=== PATIENT | male | born 1935 | race Caucasian/White ===

== ENCOUNTER 2017-05-05 00:40 | Observation (INO) | payer MEDICARE, BC ==
[~2017-05-05] VITALS: Ht 182.9 cm; Wt 112.5 kg
--- NOTE | 2017-05-05 00:54 | PHYS DOC ---
General Chief Complaint: CHEST PAIN Stated Complaint: CHEST PAIN Time Seen by MD: 00:42 Source: patient Exam Limitations: no limitations Problems: History of Present Illness Initial Comments Patient is an 81-year-old male who comes to the ED with his spouse complaining of chest discomfort. Patient states that approximately 10:15 to 10:30 PM tonight he developed anterior chest pain described as sharp and burning, moderate in intensity, no exacerbating or relieving factors. He's had this type of discomfort in the past and when he did they were able to give him a drink of which took the discomfort away. He has are visiting locally from [facility] tonight they went to a picnic and ate barbecue beef as well as many other casseroles and salads. They ate more and different types of food than normal. Patient has history of coronary artery disease with MIs in the past, he states that there was no arm or neck discomfort today different than his actual cardiac pain in the past. He follows with Dr. Gotti cardiology out of [place]. He took 4 nitroglycerin sublingually home with some relief of his discomfort but did not take it all the way away. No nausea, arm or neck symptoms, diaphoresis, palpitations, dizziness. Patient has history of CABG in as well as stents. Timing/Duration: 1-3 hours Severity: moderate Modifying Factors: worse with eating Associated Symptoms: chest pain Allergies: Coded Allergies: clindamycin (Verified Allergy, Mild, 05/05/17) haloperidol (Verified Allergy, Mild, 05/05/17) morphine (Verified Allergy, Mild, 05/05/17) Past Medical History Medical History: other (angina, CAD, DM, HTN, chronic dyspnea, c. Diff, PVD) Surgical History: angioplasty, coronary bypass surgery Social History Smoker: quit greater than 1 year Alcohol: none Drugs: none Review of Systems Constitutional: denies chills, denies fever, denies malaise Respiratory: see HPI, denies cough, denies shortness of breath, denies wheezing Cardiovascular: see HPI, denies edema, denies palpitations, denies syncope Gastrointestinal: denies constipation, denies diarrhea, denies nausea, denies vomiting Musculoskeletal: denies back pain, denies joint swelling, denies neck pain Psychiatric/Neurological: denies headache, denies numbness, denies paresthesia Physical Exam General Appearance: no apparent distress, obese Eyes: bilateral eye normal inspection, bilateral eye PERRL, bilateral eye EOMI Ear, Nose, Throat: normal ENT inspection, normal pharynx Neck: non-tender, supple Respiratory: normal breath sounds, no respiratory distress Cardiovascular: normal peripheral pulses, regular rate, rhythm Gastrointestinal: non tender, soft (ND, neg biswas/mcburney no mass) Back: no CVA tenderness, no vertebral tenderness Extremities: non-tender, normal inspection (2+ pitting LE edema) Neurologic/Psychiatric: kalsominer II-XII nml as tested, no motor/sensory deficits, alert, normal mood/affect, oriented x 3 Skin: normal color, warm/dry Orders, Labs, Meds EKG: Normal sinus rhythm 74 bpm, nonspecific intraventricular conduction delay, repolarization abnormality in V4 V5 and V6, T-wave inversion in aVF, no STEMI. Interpreted by me PCXR: post-sternotomy changes, cephalization, no acute cardiopulmonary process , interpreted by me. d-dimer 1.16, Hb 11.7, BUN 41, Cr 1.7, glu 260, BNP 1349 0214: Pt discussed with Dr Cárdenas who accepts tele/obs admission to follow CE and V/Q. 81/M visiting from [facility] with h/o CAD to ED with CP. Initial w/u nondiagnostic, V/Q and serial CE pending. Pt to be admitted to Dr Cárdenas, Cardio to see pt tomorrow. No new/progressive sx in ED Departure Disposition: ADMITTED INPATIENT Diagnosis: CP, CAD, renal insuff, elev d-dimer, Condition: STABLE Additional Instructions: tele/obs admission Dr Cárdenas is accepting. TED ARREDONDO DO May 05, 2017 00:54
[2017-05-05] MEDS ORDERED: NITROGLYCERIN SUBLINGUAL 0.4 MG BOTTLE OF 25. SL PRN ×2 (01:00→02:30)
[2017-05-05] MEDS ORDERED: MORPHINE SULFATE 2 MG/ML DISP.SYRIN. IV/SQ PRN (01:00)
[2017-05-05] MEDS ORDERED: ASPIRIN 81 MG TAB.CHEW PO ONE (01:00)
[2017-05-05 01:11] LABS: BASO % 1 % (0-3); EOS # 0.5 x10^3/uL (0.0-0.7); EOS % 6 % (0-3); HEMATOCRIT 35.5 % (39.0-53.0); HEMOGLOBIN 11.7 g/dL (13.0-17.5); LYMPH % 24 % (24-48); MEAN CORPUSCULAR HEMOGLOBIN 29 pg (25-35); MEAN CORPUSCULAR HGB CONC 33 g/dL (31-37); MEAN CORPUSCULAR VOLUME 89 fL (79-100); MONO # 1.2 x10^3/uL (0.0-1.1); MONO % 14 % (0-9); NEUT # 4.8 x10^3uL (1.8-7.7); NEUT % 57 % (31-73); PLATELET COUNT 265 x10^3/uL (140-400); RED BLOOD COUNT 3.99 x10^6/uL (4.30-5.70); RED CELL DISTRIBUTION WIDTH 13.7 % (11.5-14.5); WHITE BLOOD COUNT 8.5 x10^3/uL (4.0-11.0)
[2017-05-05] MEDS ORDERED: LIDO:MAALOX 1:1 20 ML SINGLE DOSE PO ONE (01:15)
[2017-05-05 01:33] LABS: ALBUMIN 3.9 g/dL (3.4-5.0); ALBUMIN/GLOBULIN RATIO 1.2 (1.0-1.7); CALCIUM 8.9 mg/dL (8.5-10.1); CREATININE 1.7 mg/dL (0.7-1.3); GFR 38.7; TOTAL BILIRUBIN 0.3 mg/dL (0.2-1.0); TOTAL PROTEIN 7.2 g/dL (6.4-8.2)
[2017-05-05] MEDS ORDERED: ACETAMINOPHEN 325 MG TABLET PO PRN (02:30)
[2017-05-05] MEDS ORDERED: ONDANSETRON PF 4 MG/2 ML VIAL. IV PRN (02:30)
--- NOTE | 2017-05-05 03:17 | ACF ---
Admission Criteria Forms CHEST PAIN Clinical Indications for Admission to Inpatient Care (Place 'X' for any and all applicable criteria): Admission is indicated for chest pain and ANY ONE of the following(1)(2)(3)(4)(5 ): [ ]I. Angina with acute coronary syndrome (Also use Myocardial Infarction or Angina guideline) [ ]II. Hemodynamic instability [ ]III. Angina needing acute intervention as indicated by ALL of the following( 11)(12): [ ]a) Unstable angina is present as indicated by angina that is ANY ONE of the following: [ ]i) New onset [ ]ii) Nocturnal [ ]iii) Prolonged at rest [ ]iv) Progressive [ ]b) Angina warrants acute intervention as indicated by ANY ONE of the following: [ ]i) Recurrent angina (e.g, not responding as previously to treatment) [ ]ii) Angina at rest or with low-level activities despite initial medical therapy [ ]iii) New or presumably new ST-segment depression on ECG [ ]iv) Signs or symptoms of heart failure (eg, dyspnea, pulmonary edema) [ ]v) New or worsening mitral regurgitation [ ]vi) Hemodynamic instability [ ]vii) Dangerous arrhythmia (eg, sustained ventricular tachycardia) [ ]viii) History of percutaneous coronary intervention within 6 months [ ]ix) History of coronary artery bypass graft surgery [ ]x) MARIBELL risk score of 2 or greater[A] [ ]xi) History of Diabetes(14) [ ]xii) High-risk cardiac ischemia findings on noninvasive testing (e.g, echocardiogram, treadmill testing, nuclear scan) [ ]xiii) Chronic renal insufficiency (ie, estimated GFR less than 60 mL/min/1.732m) [ ]xiv) Left ventricular ejection fraction less than 40% [ ]IV. Evidence of CA (eg, cardiac biomarkers positive, ST-segment elevation on ECG) also use Myocardial Infarction Criteria Form. [ ]V. Pulmonary edema [ ]. Respiratory distress [ ]VII. Chest pain indicative of serious diagnosis other than coronary artery disease (eg, aortic dissection) [ ]VIII. Contraindications and/or Inappropriate clinical situations for Observational Care in patients with Chest Pain, when ANY ONE of the following is required: [ ]a) Patient with risk factor for pulmonary embolism, acute coronary syndrome and myocardial infarction (18) [ ]b) Patient with Pulmonary embolism require an average LOS of 4.3 days, therefore emergency department observation management is inappropriate 18,23 [ ]c) Painful condition/s in the elderly, have the highest rate of recidivism after emergency department observation management (10.8%) 20,21,22 [ ]d) Elevated cardiac biomarker requires intensive and exhaustive care (19) [X]IX. General contraindications and/or Inappropriate clinical situations for Observational Care in patients with Chest Pain, when ANY ONE of the following is required: [X]a) Prediction of prolongation of LOS based on ANY ONE of the following may be considered as a contraindication for observational care 2, 3, 4, 5, 6, 7, 8, 9, 10, 11 [X]i) Age > 65 yrs. [ ]ii) Patient arriving by ambulance [ ]iii) Patient with high acuity [ ]iv) Patient requiring vital sign monitoring [ ]v) Patient on IV medication [ ]b) Systolic blood pressures 180mmHg 3,12 [ ]c) Patient with altered mental status including delirium and other alteration of consciousness, (3) [ ]d) Patient whose discharge disposition will be to a intermediate home or rehabilitation home should not be managed in Emergency Department Observation Unit. CMS rule requires 3 days hospital stay before such placement. 3,13 [ ]e) Patient with failure to thrive due to broad array of etiologies 3,16,17 [ ]f) Inability to ambulate 3,14 Extended stay beyond goal length of stay may be needed for (1)(28): [ ]a) Specific condition diagnosed after evaluation (eg, pulmonary embolism, aortic dissection) [ ]b) Unstable angina [ ]c) Continued suspicion of acute coronary syndrome with inability to complete needed cardiac evaluation (eg, patient clinically unable to undergo stress testing) [ ]d) Myocardial infarction (Contents from ANGINA and CHEST PAIN clinical indications for admission to inpatient care have been integrated in this form) The original [facility] content created by [employer] has been revised. The portions of the content which have been revised are identified through the use of italic text or in bold, and [facility] has neither reviewed nor approved the modified material. All other unmodified content is copyright [employer] [facility] [employer]. Please see references footnoted in the original [facility] edition 2016 Admission Criteria Met?: Yes MARIVEL MUJICA May 05, 2017 03:17
[2017-05-05 03:41] VITALS: BP 145/69
[2017-05-05] MEDS ORDERED: ISOS30TA4 PO (03:55)
[2017-05-05] MEDS ORDERED: INSU100I27 SQ (03:55)
[2017-05-05] MEDS ORDERED: ATORVASTATIN CA80 MG PO (03:55)
[2017-05-05] MEDS ORDERED: CLOP75TA57 PO (03:55)
[2017-05-05] MEDS ORDERED: FINA5TAB PO (03:55)
[2017-05-05] MEDS ORDERED: AMLO10TA4 PO (03:55)
[2017-05-05] MEDS ORDERED: GLYB5TAB3 PO (03:55)
[2017-05-05] MEDS ORDERED: LISI40TA PO (03:55)
[2017-05-05] MEDS ORDERED: ESCITALOPRAM OX10 MG PO (03:55)
[2017-05-05] MEDS ORDERED: INSU100I13 SQ (03:55)
[2017-05-05] MEDS ORDERED: GABA-586 PO (03:55)
[2017-05-05] MEDS ORDERED: FURO-68 PO (03:55)
[2017-05-05] MEDS ORDERED: ASPI-630 PO (03:55)
[2017-05-05] MEDS ORDERED: RANO10002 PO (03:55)
[2017-05-05 05:25] VITALS: BP 133/67
--- NOTE | 2017-05-05 05:42 | RAD ---
Lung scan 05/05/2017 CLINICAL HISTORY: Chest pain and shortness of breath with elevated d-dimer. TECHNIQUE: After the administration of 22.0 mCi of xenon-133 133 gas, ventilation images of both lungs were obtained using the gamma camera. After the intravenous administration of 7 mCi of technetium 99m MAA, perfusion images of both lungs were obtained. FINDINGS: Comparison is made to a portable chest radiograph obtained early today. This demonstrates no acute pulmonary infiltrate. Homogeneous ventilation and perfusion of both lungs is seen. No perfusion defect is noted. These findings are consistent with a normal lung scan. IMPRESSION: Normal lung scan. Electronically signed by: Trey Garcia MD (05/05/2017 5:38 AM)
--- NOTE | 2017-05-05 06:26 | EKG ---
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
[2017-05-05] MEDS: FUROSEMIDE 40 MG TABLET PO SCH ×2 (08:06→08:12)
[2017-05-05 08:29] LABS: BARBITURATES NEG (NEG); BENZODIAZEPINES NEG (NEG); CANNABINOIDS NEG (NEG); COCAINE NEG (NEG); METHADONE NEG (NEG); OPIATES NEG (NEG); PHENCYCLIDINE NEG (NEG)
[2017-05-05 08:34] LABS: AMPHETAMINE/METHAMPHETAMINE NEG (NEG)
[2017-05-05 08:39] LABS: BILIRUBIN,URINE NEG (NEG); CLARITY,URINE CLEAR; COLOR,URINE AMBER; GLUCOSE,URINE 100 mg/dL (NEG); NITRITE,URINE NEG (NEG); UROBILINOGEN,URINE 1 mg/dL (0.2 mg/dL)
--- NOTE | 2017-05-05 08:39 | RAD ---
Indication chest pain. A single view of the chest was obtained. No prior imaging is available. Postoperative changes are noted. There is mild cardiomegaly. There are probable background changes of fibrosis. There is no consolidated pneumonia significant pleural fluid collection or pneumothorax. An acute finding in the chest is not apparent. There are some degenerative changes about the shoulders. IMPRESSION: Mild cardiomegaly. No acute or focal process seen in the chest
[2017-05-05 08:40] LABS: BACTERIA,URINE 0 /HPF (0-FEW); RBC,URINE 0 /HPF (0-2); SQUAMOUS EPITHELIAL CELL,UR OCC /LPF; WBC,URINE RARE /HPF (0-4)
[2017-05-05] MEDS ORDERED: glyBURIDE 5 MG TABLET PO SCH (09:00)
[2017-05-05] MEDS ORDERED: RANOLAZINE 500 MG TAB.ER.12H PO SCH (09:00)
[2017-05-05] MEDS ORDERED: ISOSORBIDE MONONITRATE ER 30 MG TAB.ER.24H PO SCH (09:00)
[2017-05-05] MEDS ORDERED: LISINOPRIL 20 MG TABLET PO SCH (09:00)
[2017-05-05] MEDS ORDERED: INSULIN DETEMIR 300 UNITS/3 ML INSULN.PEN. SQ SCH (09:00)
[2017-05-05] MEDS ORDERED: ESCITALOPRAM 10 MG TABLET. PO SCH (09:00)
[2017-05-05] MEDS ORDERED: amLODIPine BESYLATE 10 MG TABLET PO SCH (09:00)
[2017-05-05] MEDS ORDERED: FINASTERIDE 5 MG TABLET PO SCH (09:00)
[2017-05-05] MEDS ORDERED: ASPIRIN 81 MG TAB.CHEW PO SCH (09:00)
[2017-05-05] MEDS ORDERED: CLOPIDOGREL BISULFATE 75 MG TABLET PO SCH (09:00)
[2017-05-05 10:23] VITALS: BP 126/61
--- NOTE | 2017-05-05 14:23 | PDOC ---
PROVIDER NOTE PROVIDER NOTE PROVIDER NOTE CARDIOLOGY CONSULTATION NOTE: CC: Chest pain HPI: 81 y.o male with prior cardiac history presenting with chest pain. Noted to have UA, admitted to hospital, then noted to have elevated troponin. Prior CABG. He has chronic stable angina, takes NTG 3-4x day. Reports that this a.m. pain persisted despite 4 SL NTG. Right now he has no pain. He is emotional about having the pain at this time. Pmhx: HTN DLP CAD s/p CABG, s/p PCI Sochx: Remote tobacco history. . Lives in [place]. Famhx: NC ROS: Negative for 08/15 systems unless otherwise noted above in HPI. Meds reviewed - Includes asa, plavix, statin, imdur and renexa. Physical Exam; VSS NC/AT CVS rrr no m/r/g PULM: CTAB ABD: Soft, NT/ND +BS EXT:No edema, diminished pulses. NEURO:Non focal exam. labs reviewed - Trop > 2.0 EKG: SR with non-specific ST/T changes. Impression: 1. NSTEMI 2. CAD s/p CABG 3. HTN 4. DLP 5. CKD - ? acute versus chronic. RECS 1. Start hep gtt 2. Plan for transfer to [facility] for cardiac cath in a.m, sooner if needed. 3. Discussed r/b/a to cath and patient agreeable to proceed. Will try to hydrate overnight based on symptoms to avoid further renal injury. Thanks for consult. Will f/u at [facility]. ROSA MEHTA MD May 05, 2017 14:22
[2017-05-05] MEDS ORDERED: HEPARIN for IV BOLUS 10,000 UNIT/10 ML VIAL. IV ONE (14:30)
[2017-05-05] MEDS ORDERED: HEPARIN 25,000UTS/500ML PREMIX 500 ML IV PRN (14:30)
[2017-05-05] MEDS ORDERED: HEPARIN for IV BOLUS 10,000 UNIT/10 ML VIAL. IV PRN ×2 (14:30)
--- NOTE | 2017-05-05 14:41 | PDOC1 ---
History of Present Illness Reason for Visit: chest discomfort History of Present Illness The patient developed chest pain at 10:30 last night described as sharp burning . He was evaluated in ER and his first cardiac enzymewas caio His D Dimer was higjh and a VQ Scan was negative for Pulmonary embolism Chief Complaint: CHEST PAIN Allergies: Coded Allergies: clindamycin (Verified Allergy, Intermediate, 05/05/17) haloperidol (Verified Allergy, Intermediate, 05/05/17) morphine (Verified Allergy, Intermediate, 05/05/17) Past Medical History Cardiac: CAD, HTN, SD, hyperipidemia Pulmonary: COPD Musculoskeletal: Other (OA ,) Renal/: Benign prostatic enlarg. Endocrine: Diabetes Past Surgical History: Arthroscopy (Of the right knee, RTHA,LEFT hip Fracture s /p ORIF,CABG, PTCA and stent deployemnt,TURP, Bilateral catarcat extraction) Past Social History Smoke: Quit (Ex smoker smoked for about fourty years ) Alcohol: none Lives: with Family Domestic Violence: Neg Health Maintenance: Cholesteral, Colonoscopy, PSA Review of Systems Review Of Systems Fourteen system , review of systems has been reviewed. See HPI for pertinent positives and negative responses, other [place] all other systems are negative, non pertinent or non contributory Cardiovascular: yes: Chest Pain Gastrointestinal: YES: Nausea Allergies: Coded Allergies: clindamycin (Verified Allergy, Intermediate, 05/05/17) haloperidol (Verified Allergy, Intermediate, 05/05/17) morphine (Verified Allergy, Intermediate, 05/05/17) Medications Current Medications Aspirin (Children'S Aspirin) 324 mg 1X ONCE PO ; Start 05/05/17 at 01:00; Stop 05/05/17 at 01:08; Status DC Nitroglycerin (Nitrostat) 0.4 mg PRN Q5MIN PRN SL CP RATING > 1/10; Start at 01:00; Stop 05/05/17 at 11:12; Status DC Morphine Sulfate (Morphine 2mg Syringe) 2 mg PRN Q15MIN PRN IV/SQ PAIN GREATER THAN 3/10; Start 05/05/17 at 01:00; Stop 05/05/17 at 01:10; Status DC Multi-Ingredient Mouthwash/Gargle (Gi Cocktail) 20 ml 1X ONCE PO Last administered on 05/05/17t 01:11; Start 05/05/17 at 01:15; Stop 05/05/17 at 01:16; Status DC Ondansetron HCl (Zofran) 4 mg PRN Q4HRS PRN IV NAUSEA/VOMITING; Start 05/05/17 at 02:30; Stop 05/06/17 at 02:29 Acetaminophen (Tylenol) 650 mg PRN Q4HRS PRN PO FEVER Last administered on 04:12; Start 05/05/17 at 02:30; Stop 05/06/17 at 02:29 Nitroglycerin (Nitrostat) 0.4 mg PRN Q5MIN PRN SL CHEST PAIN; Start 05/05/17 at 02:30; Stop 05/06/17 at 02:29 Amlodipine Besylate (Norvasc) 10 mg DAILY PO Last administered on 05/05/17 08: 11; Start 05/05/17 at 09:00 Aspirin (Children'S Aspirin) 81 mg DAILY PO Last administered on 05/05/17 08:11 ; Start 05/05/17 at 09:00 Clopidogrel Bisulfate (Plavix) 75 mg DAILY PO Last administered on 05/05/17 08: 12; Start 05/05/17 at 09:00 Finasteride (Proscar) 5 mg DAILY PO Last administered on 05/05/17 08:12; Start 05/05/17 at 09:00 Furosemide (Lasix) 40 mg DAILY PO Last administered on 05/05/17 08:12; Start at 09:00 Gabapentin (Neurontin) 300 mg HS PO ; Start 05/05/17 at 21:00 Glyburide (Diabeta) 5 mg BID PO Last administered on 05/05/17 08:05; Start 05/05 at 09:00 Insulin Detemir (Levemir) 18 units BID SQ Last administered on 05/05/17 08:47; Start 05/05/17 at 09:00 Isosorbide Mononitrate (Imdur) 30 mg DAILY PO Last administered on 05/05/17 08: 06; Start 05/05/17 at 09:00 Atorvastatin Calcium (Lipitor) 80 mg QHS PO ; Start 05/05/17 at 21:00 Escitalopram Oxalate (Lexapro) 10 mg DAILY PO Last administered on 05/05/17 08: 11; Start 05/05/17 at 09:00 Lisinopril (Prinivil) 40 mg DAILY PO Last administered on 05/05/17 08:17; Start 05/05/17 at 09:00 Ranolazine (Ranexa) 500 mg BID PO Last administered on 05/05/17 08:16; Start at 09:00 Heparin Sodium/ Dextrose 500 ml @ 0 mls/hr CONT PRN IV SEE I/O RECORD; Start at 14:30; Status UNV Heparin Sodium (Porcine) 8,000 unit 1X ONCE IV ; Start 05/05/17 at 14:30; Stop 05/05/17 at 14:31; Status UNV Heparin Sodium (Porcine) 2,000 unit PRN Q6HRS PRN IV FOLLOW PROTOCOL GUIDELINES ; Start 05/05/17 at 14:30; Status UNV Heparin Sodium (Porcine) 1,000 unit PRN Q6HRS PRN IV FOLLOW PROTOCOL GUIDELINES ; Start 05/05/17 at 14:30; Status UNV Active Scripts Active Reported Norvasc (Amlodipine Besylate) 10 Mg Tablet 1 Tab PO DAILY Isosorbide Mononitrate Er (Isosorbide Mononitrate) 30 Mg Tab.er.24h 1 Tab PO DAILY Aspirin 81 Mg Tab.chew 81 Mg PO DAILY Lasix (Furosemide) 40 Mg Tablet 1 Tab PO DAILY Plavix (Clopidogrel Bisulfate) 75 Mg Tablet 1 Tab PO DAILY Escitalopram Oxalate 10 Mg Tablet 1 Tab PO DAILY Lisinopril 40 Mg Tablet 1 Tab PO DAILY Levemir Flextouch (Insulin Detemir) 100 Unit/1 Ml Insuln.pen 18 Unit SQ BID Glyburide 5 Mg Tablet 1 Tab PO BID Gabapentin 300 Mg Capsule 300 Mg PO HS Proscar (Finasteride) 5 Mg Tablet 1 Tab PO DAILY Ranexa (Ranolazine) 1,000 Mg Tab.er.12h 1 Tab PO BID Exam Vital Signs Vital Signs Date Time Temp Pulse Resp B/P (MAP) Pulse Ox O2 Delivery O2 Flow Rate FiO2 05/05/17 10:23 97.8 57 20 126/61 (82) 95 Room Air General Appearance: Alert, Oriented X3, Cooperative, moderate distress HEENT: Atraumatic, PERRLA, EOMI, Mucous membr. moist/pink Heart: Regular rate, Normal S1, Normal S2 Cardiac: AFIB, CAD, HTN, SD, hyperipidemia BREASTS: Normal Abdominal: Normal bowel sounds, No tenderness Male Genitals Exam: normal genitalia Extremities: No clubbing, No cyanosis, No edema, No tenderness/swelling Skin: No rashes, No breakdown Neuro: Normal gait, Normal speech, Strength at 5/5 X4 ext, Normal tone, Sensation intact Psych/Mental Status: Mental status NL, Mood NL Assessment/Plan Assessment/Plan The patient has three sets of cardiac enzymes that trended upward indicating acute NSTEMI We have consulted cardiology team who recommended to start him on heparin and transfer to [facility] with the aim of cardiac catheterization and revasculaization if feasible COURSE Allergies Coded Allergies Type Severity Reaction Last Updated Verified clindamycin Allergy Intermediate 05/05/17 Yes haloperidol Allergy Intermediate 05/05/17 Yes morphine Allergy Intermediate 05/05/17 Yes Laboratory Tests Test 05/05/17 00:57 05/05/17 01:15 05/05/17 07:34 05/05/17 07:45 White Blood Count 8.5 x10^3/uL (4.0-11.0) Red Blood Count 3.99 x10^6/uL (4.30-5.70) Hemoglobin 11.7 g/dL (13.0-17.5) Hematocrit 35.5 % (39.0-53.0) Mean Corpuscular Volume 89 fL (79-100) Mean Corpuscular Hemoglobin 29 pg (25-35) Mean Corpuscular Hemoglobin Concent 33 g/dL (31-37) Red Cell Distribution Width 13.7 % (11.5-14.5) Platelet Count 265 x10^3/uL (140-400) Neutrophils (%) (Auto) 57 % (31-73) Lymphocytes (%) (Auto) 24 % (24-48) Monocytes (%) (Auto) 14 % (0-9) Eosinophils (%) (Auto) 6 % (0-3) Basophils (%) (Auto) 1 % (0-3) Neutrophils # (Auto) 4.8 x10^3uL (1.8-7.7) Lymphocytes # (Auto) 2.0 x10^3/uL (1.0-4.8) Monocytes # (Auto) 1.2 x10^3/uL (0.0-1.1) Eosinophils # (Auto) 0.5 x10^3/uL (0.0-0.7) Basophils # (Auto) 0.0 x10^3/uL (0.0-0.2) Sodium Level 138 mmol/L (136-145) Potassium Level 5.0 mmol/L (3.5-5.1) Chloride Level 102 mmol/L (98-107) Carbon Dioxide Level 27 mmol/L (21-32) Anion Gap 9 (6-14) Blood Urea Nitrogen 41 mg/dL (8-26) Creatinine 1.7 mg/dL (0.7-1.3) Estimated GFR (Cockcroft-Gault) 38.7 BUN/Creatinine Ratio 24 (6-20) Glucose Level 260 mg/dL (70-99) Calcium Level 8.9 mg/dL (8.5-10.1) Total Bilirubin 0.3 mg/dL (0.2-1.0) Aspartate Amino Transf (AST/SGOT) 24 U/L (15-37) Alanine Aminotransferase (ALT/SGPT) 20 U/L (16-63) Alkaline Phosphatase 72 U/L (46-116) Creatine Kinase 70 U/L (39-308) Troponin I Quantitative < 0.017 ng/mL (0-0.055) 0.816 ng/mL (0-0.055) YE-Amt-B-Type Natriuretic Peptide 1349 pg/mL (0-449) Total Protein 7.2 g/dL (6.4-8.2) Albumin 3.9 g/dL (3.4-5.0) Albumin/Globulin Ratio 1.2 (1.0-1.7) Lipase 190 U/L (73-393) Prothrombin Time 11.0 SEC (9.4-11.4) Prothromb Time International Ratio 1.1 (0.9-1.1) Activated Partial Thromboplast Time 24 SEC (23-33) D-Dimer (Iris) 1.16 mg/L (0.00-0.50) Glucose (Fingerstick) 202 mg/dL (70-99) Test 05/05/17 08:05 05/05/17 11:38 05/05/17 13:26 Urine Collection Type Void Urine Color Mandy Urine Clarity Clear Urine pH 6.5 Urine Specific [place] 1.015 Urine Protein Trace (NEG-TRACE) Urine Glucose (UA) 100 mg/dL (NEG) Urine Ketones (Stick) Neg mg/dL (NEG) Urine Blood Neg (NEG) Urine Nitrite Neg (NEG) Urine Bilirubin Neg (NEG) Urine Urobilinogen Dipstick 1 mg/dL (0.2 mg/dL) Urine Leukocyte Esterase Neg (NEG) Urine RBC 0 /HPF (0-2) Urine WBC Rare /HPF (0-4) Urine Squamous Epithelial Cells Occ /LPF Urine Bacteria 0 /HPF (0-FEW) Urine Opiates Screen Neg (NEG) Urine Methadone Screen Neg (NEG) Urine Barbiturates Neg (NEG) Urine Phencyclidine Screen Neg (NEG) Urine Amphetamine/Methamphetamine Neg (NEG) Urine Benzodiazepines Screen Neg (NEG) Urine Cocaine Screen Neg (NEG) Urine Cannabinoids Screen Neg (NEG) Urine Ethyl Alcohol Neg (NEG) Glucose (Fingerstick) 269 mg/dL (70-99) Troponin I Quantitative 2.185 ng/mL (0-0.055) Current Medications Medications (Trade) Dose Ordered Sig/Stanislav Route PRN Reason Start Time Stop Time Status Last Admin Dose Admin Aspirin (Children'S Aspirin) 324 mg 1X ONCE PO 05/05/17 01:00 05/05/17 01:08 DC Nitroglycerin (Nitrostat) 0.4 mg PRN Q5MIN PRN SL CP RATING > 1/10 05/05/17 01:00 05/05/17 11:12 DC Morphine Sulfate (Morphine 2mg Syringe) 2 mg PRN Q15MIN PRN IV/SQ PAIN GREATER THAN 3/10 05/05/17 01:00 05/05/17 01:10 DC Multi-Ingredient Mouthwash/Gargle (Gi Cocktail) 20 ml 1X ONCE PO 05/05/17 01:15 05/05/17 01:16 DC 05/05/17 01:11 Ondansetron HCl (Zofran) 4 mg PRN Q4HRS PRN IV NAUSEA/VOMITING 05/05/17 02:30 05/06/17 02:29 Acetaminophen (Tylenol) 650 mg PRN Q4HRS PRN PO FEVER 05/05/17 02:30 05/06/17 02:29 05/05/17 04:12 Nitroglycerin (Nitrostat) 0.4 mg PRN Q5MIN PRN SL CHEST PAIN 05/05/17 02:30 05/06/17 02:29 Amlodipine Besylate (Norvasc) 10 mg DAILY PO 05/05/17 09:00 05/05/17 08:11 Aspirin (Children'S Aspirin) 81 mg DAILY PO 05/05/17 09:00 05/05/17 08:11 Clopidogrel Bisulfate (Plavix) 75 mg DAILY PO 05/05/17 09:00 05/05/17 08:12 Finasteride (Proscar) 5 mg DAILY PO 05/05/17 09:00 05/05/17 08:12 Furosemide (Lasix) 40 mg DAILY PO 05/05/17 09:00 05/05/17 08:12 Gabapentin (Neurontin) 300 mg HS PO 05/05/17 21:00 Glyburide (Diabeta) 5 mg BID PO 05/05/17 09:00 05/05/17 08:05 Insulin Detemir (Levemir) 18 units BID SQ 05/05/17 09:00 05/05/17 08:47 Isosorbide Mononitrate (Imdur) 30 mg DAILY PO 05/05/17 09:00 05/05/17 08:06 Atorvastatin Calcium (Lipitor) 80 mg QHS PO 05/05/17 21:00 Escitalopram Oxalate (Lexapro) 10 mg DAILY PO 05/05/17 09:00 05/05/17 08:11 Lisinopril (Prinivil) 40 mg DAILY PO 05/05/17 09:00 05/05/17 08:17 Ranolazine (Ranexa) 500 mg BID PO 05/05/17 09:00 05/05/17 08:16 Heparin Sodium/ Dextrose 500 ml @ 0 mls/hr CONT PRN IV SEE I/O RECORD 05/05/17 14:30 UNV Heparin Sodium (Porcine) 8,000 unit 1X ONCE IV 05/05/17 14:30 05/05/17 14:31 UNV Heparin Sodium (Porcine) 2,000 unit PRN Q6HRS PRN IV FOLLOW PROTOCOL GUIDELINES 05/05/17 14:30 UNV Heparin Sodium (Porcine) 1,000 unit PRN Q6HRS PRN IV FOLLOW PROTOCOL GUIDELINES 05/05/17 14:30 UNV Orders Procedure Category Date Status Time Vital Signs ER 05/05/17 Transmitted 00:43 Bp Monitoring ER 05/05/17 Transmitted 00:43 Fourth Officer ER 05/05/17 Transmitted 00:43 Continuous Pulse ER 05/05/17 Transmitted Oximetry 00:43 Saline Lock ER 05/05/17 Transmitted 00:43 Oxygen Delivery ER 05/05/17 Transmitted 00:43 Cath Bladder ER 05/05/17 Transmitted Non-Indwelling 00:43 Cbc W Autodiff LAB 05/05/17 Complete 00:43 Troponin I LAB 05/05/17 Complete 00:43 Creatine Kinase LAB 05/05/17 Complete 00:43 Lipase LAB 05/05/17 Complete 00:43 Ua, Cult If Indicated LAB 05/05/17 Complete 00:43 Nt-Pro Bnp LAB 05/05/17 Complete 00:43 Drugs Of Abuse Ur LAB 05/05/17 Complete 00:43 Portable Chest 1v RAD 05/05/17 Resulted 00:43 Aspirin (Children's PHA 05/05/17 Complete Aspirin) 01:00 Nitroglycerin PHA 05/05/17 Complete Sublingual (Nitrostat) 01:00 12 Lead Ekg EKG 05/05/17 Complete 00:43 Comprehensive LAB 05/05/17 Complete Metabolic Panel 00:43 Pulse Oximetry: VICKY 05/05/17 In Process Standing Order 00:43 Morphine Sulfate PHA 05/05/17 Complete (Morphine 2mg Syringe) 01:00 Lido:Maalox 1:1 (Gi PHA 05/05/17 Complete Cocktail) 01:15 D-Dimer LAB 05/05/17 Complete 01:12 Protime LAB 05/05/17 Complete 01:12 Partial LAB 05/05/17 Complete Thromboplastin Time 01:12 [place] Order ADT 05/05/17 Transmitted 02:21 Code Status CODE 05/05/17 Transmitted 02:21 Vital Signs, Per VICKY 05/05/17 In Process Protocol 02:21 Oxygen VICKY 05/05/17 In Process 02:21 Bahamian Diabetic DIET 05/05/17 Transmitted Assoc Diet Breakfast Bed Rest VICKY 05/05/17 In Process 02:21 Cbc W Autodiff LAB 05/06/17 Verified 06:00 Basic Metabolic Panel LAB 05/06/17 Verified 06:00 Ondansetron Pf PHA 05/05/17 In Process (Zofran) 02:30 Troponin I LAB 05/05/17 Complete 07:21 Acetaminophen PHA 05/05/17 In Process (Tylenol) 02:30 Nitroglycerin PHA 05/05/17 In Process Sublingual (Nitrostat) 02:30 Troponin I LAB 05/05/17 Complete 13:21 Lung Vent/Perfusion NM 05/05/17 Resulted Scan(Vq) 02:21 Admit Orders ADT 05/05/17 Transmitted Amlodipine Besylate PHA 05/05/17 In Process (Norvasc) 09:00 Aspirin (Children's PHA 05/05/17 In Process Aspirin) 09:00 Clopidogrel Bisulfate PHA 05/05/17 In Process (Plavix) 09:00 Finasteride (Proscar) PHA 05/05/17 In Process 09:00 Furosemide Tablet PHA 05/05/17 In Process (Lasix) 09:00 Gabapentin (Neurontin) PHA 05/05/17 In Process 21:00 Glyburide (Diabeta) PHA 05/05/17 In Process 09:00 Insulin Detemir PHA 05/05/17 In Process (Levemir) 09:00 Isosorbide PHA 05/05/17 In Process Mononitrate Er (Imdur) 09:00 Atorvastatin Calcium PHA 05/05/17 In Process (Lipitor) 21:00 Escitalopram (Lexapro) PHA 05/05/17 In Process 09:00 Lisinopril (Prinivil) PHA 05/05/17 In Process 09:00 Ranolazine (Ranexa) PHA 05/05/17 In Process 09:00 Consult Physician By CONS 05/05/17 Transmitted Name 08:41 12 Lead Ekg EKG 05/05/17 Logged 08:46 Partial LAB 05/05/17 Logged Thromboplastin Time 14:22 Protime LAB 05/05/17 Logged 14:22 Cbc W Autodiff LAB 05/05/17 Logged 14:22 Heparin PHA 05/05/17 Transmitted 25,000uts/500ml Premix 14:30 Heparin For Iv Bolus PHA 05/05/17 Logged 14:30 Heparin For Iv Bolus PHA 05/05/17 Transmitted 14:30 Heparin For Iv Bolus PHA 05/05/17 Logged 14:30 Cbc W Autodiff LAB 05/08/17 Verified 14:22 Height VICKY 05/05/17 In Process 14:22 Weight VICKY 05/05/17 In Process 14:[address] Lab VCIKY 05/05/17 In Process Order 14:22 Vital Signs Date Time Temp Pulse Resp B/P (MAP) Pulse Ox O2 Delivery O2 Flow Rate FiO2 05/05/17 10:23 97.8 57 20 126/61 (82) 95 Room Air CLAUDIA KINCAID MD May 05, 2017 14:41
[2017-05-05 14:42] LABS: BASO % 0 % (0-3); EOS # 0.4 x10^3/uL (0.0-0.7); EOS % 5 % (0-3); HEMATOCRIT 32.5 % (39.0-53.0); HEMOGLOBIN 10.9 g/dL (13.0-17.5); LYMPH # 1.5 x10^3/uL (1.0-4.8); LYMPH % 20 % (24-48); MEAN CORPUSCULAR HEMOGLOBIN 30 pg (25-35); MEAN CORPUSCULAR HGB CONC 34 g/dL (31-37); MEAN CORPUSCULAR VOLUME 89 fL (79-100); MONO # 0.9 x10^3/uL (0.0-1.1); MONO % 13 % (0-9); NEUT # 4.7 x10^3uL (1.8-7.7); NEUT % 62 % (31-73); PLATELET COUNT 243 x10^3/uL (140-400); RED BLOOD COUNT 3.65 x10^6/uL (4.30-5.70); RED CELL DISTRIBUTION WIDTH 13.2 % (11.5-14.5); WHITE BLOOD COUNT 7.6 x10^3/uL (4.0-11.0)
[2017-05-05 15:17] VITALS: BP 121/62
--- NOTE | 2017-05-05 15:17 | EKG ---
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
[2017-05-05] MEDS ORDERED: ATORVASTATIN CALCIUM 20 MG TABLET PO SCH (21:00)
[2017-05-05] MEDS ORDERED: GABAPENTIN 300 MG CAPSULE. PO SCH (21:00)
== END 2017-05-05 15:51 | disposition short-term general hospital (02) ==
LOC: ER 00:40 → 1 SOUTH 02:24
PROVIDERS: ADMIT Internal Medicine; ATTEND Internal Medicine
DX: R07.89 Other chest pain (principal); E11.51 Type 2 diabetes mellitus with diabetic peripheral angiopathy without gangrene; I25.10 Atherosclerotic heart disease of native coronary artery without angina pectoris; I21.4 Non-ST elevation (NSTEMI) myocardial infarction; E78.5 Hyperlipidemia, unspecified; I10 Essential (primary) hypertension; Z87.891 Personal history of nicotine dependence; Z95.1 Presence of aortocoronary bypass graft; Z95.5 Presence of coronary angioplasty implant and graft; J44.9 Chronic obstructive pulmonary disease, unspecified
CPT/HCPCS: 36415; 71010; 78582; 80053; 81001; 82550; 82947; 83690; 83880; 84484; 85027; 85379; 85610; 85730; 93005; 96365; 96372; 96375; 99285; A9540; A9558; G0378; G0481; J1644; J1815; 96374; G0379